=== PATIENT | female | born 1980 | race African-American/Black ===

== ENCOUNTER 2020-07-18 08:58 | Emergency (ER) | payer OTHER, SELFPAY ==
--- NOTE | 2020-07-18 09:10 | ED.GENADULT ---
HPI - General Adult General Chief complaint: Upper Respiratory Infection Stated complaint: Sore Throat Time Seen by Provider: 07/18/20 09:10 Source: patient Mode of arrival: ambulatory Limitations: no limitations History of Present Illness HPI narrative: 39-year-old female patient presents to the [facility] with complaints of a sore throat that started on July 02. Patient states that she had a COVID test done on the fourth and was negative. Patient states that the sore throat has persisted and states that she is not allowed to return to work until symptoms have resolved. Patient states that her to get another COVID test today. Patient denies any fevers, body aches or chills. Denies any ear pain. Denies any chest pain, shortness of breath or coughing. Patient states she has been taking some [id number] cold medicine with minimal relief. Patient denies trying to take any antihistamines. Related Data Home Medications Medication Instructions Recorded Confirmed cyclobenzaprine mg 07/18/20 gabapentin 07/18/20 Allergies Allergy/AdvReac Type Severity Reaction Status Date / Time No Known Allergies Allergy Verified 07/18/20 09:06 Review of Systems Review of Systems: Narrative: CONSTITUTIONAL: Denies fever, chills, or sweats. EYES: Denies visual changes, redness, or discharge. ENT: Positive rhinorrhea, congestion, positive sore throat, denies otalgia. CARDIOVASCULAR: Denies chest pain, palpitations, or edema. RESPIRATORY: Denies cough or dyspnea. GASTROINTESTINAL: Denies abdominal pain, nausea, vomiting, or diarrhea. GENITOURINARY: Denies dysuria or hematuria. SKIN: Denies rash or itching. MUSCULOSKELETAL: Denies back pain, joint pain, or myalgia. NEUROLOGIC: Denies headache, numbness, or weakness. PSYCHIATRIC: Denies anxiety or depression. [facility] Family History Family History Mother Family history of obesity Family history of arthritis Sibling Asthma Father Family history of atrial fibrillation Family history of congestive heart failure Social History Social History Alcohol intake: current Comments At the time of my signature I agree with nursing past medical history, surgical, social, and family history. There is no relevant family history pertinent to the presenting complaint. Exam Narrative: Exam Narrative: GENERAL: Well-appearing, well-nourished, and in no acute distress. HEAD: Normocephalic, atraumatic. EYES: PERRLA and EOMI. ENT: Nares with erythema and edema noted bilaterally, no rhinorrhea or epistaxis. Mucous membranes moist. Posterior pharynx with no erythema, tonsil enlargement, exudates or lesions present. Bilateral TMs are clear no erythema or foreign bodies to the canal. NECK: Supple. No lymphadenopathy CHEST: Clear to auscultation. No respiratory distress. HEART: Regular rate and rhythm. No murmur heard. Normal peripheral pulses. ABDOMEN: Soft, nontender, nondistended, normal active bowel sounds. EXTREMITIES: Normal range of motion. No edema. SKIN: Warm, dry, no rash. NEURO: No focal deficits. Alert and oriented x3. Course Vital Signs Vital signs: Vital Signs Temperature 36.8 C 07/18/20 09:14 Pulse Rate 90 07/18/20 09:14 Respiratory Rate 16 07/18/20 09:14 Blood Pressure 124/76 07/18/20 09:14 Pulse Oximetry 100 07/18/20 09:14 Temperature 36.8 C 07/18/20 09:14 Pulse Rate 90 07/18/20 09:14 Respiratory Rate 16 07/18/20 09:14 Blood Pressure 124/76 07/18/20 09:14 Pulse Oximetry 100 07/18/20 09:14 Vital signs reviewed. Medical Decision Making Differential Diagnosis Differential Diagnosis: Differential diagnosis: Viral pharyngitis, pharyngitis, group A strep, infectious mononucleosis, gonococcal pharyngitis, exudative pharyngitis, oral candidiasis. Chronic allergies, postnasal drip, GERD, abscess formation, but glottitis, retropharyn
[2020-07-18 09:14] VITALS: BP 124/76; PULSE 90; RESP 16; TEMP 36.8; O2SAT 100
== END 2020-07-18 09:35 | disposition home or self-care (01) ==
PROVIDERS: Emergency Provider Nurse Practitioner Family; PCP Family Medicine
DX: Z20.828 Contact with and (suspected) exposure to other viral communicable diseases (principal); J02.9 Acute pharyngitis, unspecified; J45.909 Unspecified asthma, uncomplicated
CPT/HCPCS: 87081; 87880; 99213; G0463

== ENCOUNTER 2021-05-31 18:40 | Emergency (ER) | payer OTHER, SELFPAY ==
[2021-05-31 18:50] VITALS: BP 128/67; PULSE 77; RESP 16; TEMP 36.6; O2SAT 100
--- NOTE | 2021-05-31 18:51 | ED.SKABFB ---
HPI - Skin/Abscess/Foreign Bdy General Chief complaint: Skin/Abscess/Foreign Body Stated complaint: Rash Time Seen by Provider: 05/31/21 18:52 Source: patient and RN notes reviewed Mode of arrival: ambulatory Limitations: no limitations History of Present Illness HPI narrative: 40-year-old female presents to the [facility] with complaints of a rash to the bilateral back of her knees and bilateral antecubital areas. States it started a little over a week ago. Primary care had prescribed some triamcinolone and states that it parker when she applies it. Has a history of eczema patient reports that she started taking a probiotic when my skin started sloughing off. States whenever I get into the shower all of my skin comes off. Related Data Home Medications Medication Instructions Recorded Confirmed cyclobenzaprine 10 mg PO HS PRN 07/18/20 07/18/20 gabapentin 100 mg PO TID PRN 07/18/20 07/18/20 Allergies Allergy/AdvReac Type Severity Reaction Status Date / Time No Known Allergies Allergy Verified 07/18/20 09:06 Review of Systems Review of Systems: All systems reviewed & are unremarkable except as noted in HPI and below Constitutional: Constitutional: Reports no additional constitutional complaints, Denies chills and Denies fever(s) Eyes: Eyes: Reports no additional eye complaints Cardiovascular: Cardiovascular: Reports no additional cardiovascular complaints and Denies chest pain Respiratory: Respiratory: Reports no additional respiratory complaints, Denies cough and Denies dyspnea Musculoskeletal: Musculoskeletal: Reports no additional musculoskeletal complaints Integumentary/Breasts: Skin/Breast: Reports as per HPI, Reports pruritus, Reports erythema and Reports rash (Bilateral antecubital, bilateral posterior knees) Neurologic: Reports system reviewed and no additional complaints, except as documented Psychiatric: Psychiatric: Reports no additional psychiatric complaints Allergic/Immunologic: Allergic/Immunologic: Reports no additional allergic/immunologic complaints [facility] Family History Family History Mother Family history of obesity Family history of arthritis Sibling Asthma Father Family history of atrial fibrillation Family history of congestive heart failure Social History Social History Alcohol intake: current Comments At the time of my signature, I reviewed and agree with the nursing past medical, surgical, social, and family history. There is no relevant family history pertinent to the patient complaint. Exam Const: General: healthy appearing, no acute distress and alert Nutritional Appearance: well nourished Orientation/consciousness: patient oriented x3 Limitations: no limitations HENMT: Head: normal to inspection Eyes: Pupils: Equal, round and reactive pupils present Neck: Neck: normal visual inspection, no lymphadenopathy and no meningeal signs Chest: Chest palpation & inspection: normal inspection of the chest Resp: Effort & Inspection: normal respiratory effort and no use of accessory muscles Auscultation: clear to auscultation bilaterally, no crackles, no rales, no rhonchi and no wheezes Cardio: Rate: regular rate Rhythm: regular rhythm Back/Spine/Pelvis: Back: no CVA tenderness Skin: General skin exam: normal color, turgor normal, dry skin (Extremely dry skin with 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
== END 2021-05-31 19:11 | disposition home or self-care (01) ==
PROVIDERS: Emergency Provider Nurse Practitioner; PCP Family Medicine
DX: L30.9 Dermatitis, unspecified (principal); J45.909 Unspecified asthma, uncomplicated
CPT/HCPCS: 99213; G0463

== ENCOUNTER 2022-10-10 18:53 | Emergency (ER) | payer OTHER, SELFPAY ==
--- NOTE | ~2022-10-10 | XR_ITS ---
EXAMINATION: XR chest 2V DATE: 10/10/2022 19:19 INDICATION: Chest pressure. Shortness of breath. TECHNIQUE: Frontal and lateral views of the chest were obtained. COMPARISON: Chest single view 04/04/2010 FINDINGS: The chest demonstrates clear lungs without pneumonia, pleural effusion, or pneumothorax. Th e heart size is normal. Surgical clips in the right upper quadrant are likely from cholecystectomy. IMPRESSION: 1. No acute cardiopulmonary disease. Reviewed, dictated and finalized at location A. [employer]
--- NOTE | 2022-10-10 18:57 | ED.URI ---
HPI - URI/Sore Throat General Chief Complaint: Upper Respiratory Infection Stated Complaint: not feeling well Time Seen by Provider: 10/10/22 18:58 Source: patient Mode of arrival: ambulatory Limitations: no limitations History of Present Illness HPI Narrative: Ms. Mccain is a 41-year-old female patient presenting to clinic today with complaints of not feeling well . She reports she is having body aches, chills, feels as though something sitting on her chest, and fatigue times 2 weeks. She denies any known fever. She denies any URI symptoms or sore throat. She does have a history of asthma MD elicited complaint: other ( shortness of breath, body aches, chills) Related Data Home Medications Medication Instructions Recorded Confirmed albuterol sulfate 2.5 mg/3 mL 2.5 mg inhalation DIRECTED 10/10/22 10/10/22 (0.083 %) solution for nebulization albuterol sulfate 90 mcg/actuation 90 mcg inhalation DIRECTED 10/10/22 10/10/22 aerosol inhaler naproxen 500 mg tablet 500 mg PO BID 10/10/22 10/10/22 Allergies Allergy/AdvReac Type Severity Reaction Status Date / Time No Known Allergies Allergy Verified 10/10/22 19:02 Review of Systems Review of Systems: Pertinent positives per HPI. Patient denies any fever, chills, rash, headache, visual changes, dizziness, cough, shortness of breath, chest pain, palpitations, nausea, vomiting, diarrhea, constipation, abdominal pain, or any urinary issues. PMFSH Past Medical History Medical History Anemia Anxiety disorder Asthma History of gastrointestinal procedure ERCP ERCP w/sphincterectomy Thyroid disease Surgical History Surgical History History of dilation and curettage Hscope, D&C, polypectomy- endometrial hypertropy- uterine fibroids- benign History of hysteroscopy History of orthopedic surgery Hx laparoscopic cholecystectomy Family History Family History Mother Family history of obesity Family history of arthritis Sibling Asthma Father Family history of atrial fibrillation Family history of congestive heart failure Other Cerebrovascular accident Social History Social History Smoking status: Never smoker Alcohol intake: never Substance use: never Substance use type: does not use 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 There is no relevant family history pertinent to the patient complaint. Exam Narrative: General: Well-developed, well nourished, in no apparent distress Head: Normocephalic, atraumatic Eyes: Pupils equally round and reactive to light bilaterally, EOM intact, sclera and conjunctive clear, no discharge, lids normal Ears: TMs intact and clear, ear canals clear, no drainage, grossly hearing normal. Nose: Nares patent, no discharge, no inflammation, no sinus tenderness. Mouth: Oral pharynx without lesions or masses, good dentition, MMM. Neck: Supple, trachea midline, no enlargement of anterior or posterior cervical nodes, no thyroid masses or goiter palpable. Cardio: Regular rate and rhythm, s1 and s2 normal, no murmur appreciated. Resp: Diminished lung sounds in the bases otherwise clear, no rhonchi, rales, wheezing or rubs Course Course Emergency Course: Portions of this record may have been created with voice recognition software. Level of Care: Express Care Visit Vital Signs Vital signs: Vital signs reviewed MDM - URI/Sore Throat MDM Narrative Medical decision making narrative: At
[2022-10-10 19:01] VITALS: BP 136/81; PULSE 84; RESP 16; TEMP 37.2; O2SAT 100
[2022-10-10 19:02] VITALS: BP 136/81; PULSE 84; RESP 16; TEMP 37.2; O2SAT 100
--- NOTE | 2022-10-10 19:08 | ECG_ITS ---
Measurements Intervals [place] Rate: 94 P: 64 AL: 139 QRS: 3 QRSD: 79 T: 32 QT: 382 QTc: 480 Interpretive Statements SINUS RHYTHM LOW QRS VOLTAGE IN PRECORDIAL LEADS BORDERLINE ECG NO PREVIOUS ECG AVAILABLE FOR COMPARISON Electronically Signed On 10-11-2022 11:49:47 MARKETING REPRESENTATIVE by Chai Arriaga D.O.
== END 2022-10-10 19:32 | disposition home or self-care (01) ==
PROVIDERS: Emergency Provider Nurse Practitioner Family; PCP Family Medicine
DX: J10.1 Influenza due to other identified influenza virus with other respiratory manifestations (principal); J45.909 Unspecified asthma, uncomplicated
CPT/HCPCS: 71046; 87804; 93005; 99213; G0463